=== PATIENT | male | born 1980 | race Caucasian/White ===

== ENCOUNTER 2024-05-04 10:48 | Outpatient (RCR) | payer BC, SELFPAY | END 2024-05-04 23:59 | disposition home or self-care (01) | LOC: RPT 10:48 | PROVIDERS: ATTENDING PHYSICIAN Physical Medicine & Rehabilitation Pain Medicine; FAMILY PHYSICIAN Nurse Practitioner | DX: M54.59 Other low back pain (principal); Z73.6 Limitation of activities due to disability; M51.36 Other intervertebral disc degeneration, lumbar region; M47.816 Spondylosis without myelopathy or radiculopathy, lumbar region; S39.012D Strain of muscle, fascia and tendon of lower back, subsequent encounter | CPT/HCPCS: 97110; 97112; 97162 ==

== ENCOUNTER 2024-05-18 12:52 | Outpatient (RCR) | payer BC, SELFPAY | END 2024-05-18 23:59 | disposition home or self-care (01) | LOC: RPT 12:52 | PROVIDERS: ATTENDING PHYSICIAN Physical Medicine & Rehabilitation Pain Medicine; FAMILY PHYSICIAN Nurse Practitioner | DX: M54.59 Other low back pain (principal) | CPT/HCPCS: 97110; 97112 ==

== ENCOUNTER 2024-06-08 09:16 | Outpatient (RCR) | payer BC, SELFPAY | END 2024-06-08 23:59 | disposition home or self-care (01) | LOC: RPT 09:16 | PROVIDERS: ATTENDING PHYSICIAN Physical Medicine & Rehabilitation Pain Medicine; FAMILY PHYSICIAN Nurse Practitioner | DX: M54.59 Other low back pain (principal); Z73.6 Limitation of activities due to disability; M51.36 Other intervertebral disc degeneration, lumbar region; M47.816 Spondylosis without myelopathy or radiculopathy, lumbar region | CPT/HCPCS: 97110 ==

== ENCOUNTER → 2024-06-22 08:51 | Outpatient (REF) | payer BC, SELFPAY ==
[2024-06-22 12:17] LABS: % Basophils 1.2 % (0-2); % Eosinophils 4.2 % (0-6); % Immature Granulocytes 0.2 % (0-0.5); % Lymphocytes 30.4 % (20.5-51.1); Absolute Basophils 0.1 10^3/uL (0-0.2); Absolute Eosinophils 0.3 10^3/uL (0-0.7); Absolute Lymphocytes 1.8 10^3/uL (1.2-3.4); Absolute Monocytes 0.5 10^3/uL (0.1-0.6); Absolute Neutrophils 3.3 10^3/uL (1.4-6.5); Hematocrit 44.6 % (39.0-52.0); Hemoglobin 15.6 g/dL (13.0-18.0); Mean Corpuscular Hgb 30.2 pg (27.0-31.0); Mean Corpuscular Volume 86.4 fL (80.0-94.0); Mean Platelet Volume 10.8 fL (7.4-10.4); Nucleated Red Blood Cells % 0 % (-); Platelet Count 273 10^3/uL (130-400); Red Blood Cell Count 5.16 10^6/uL (4.70-6.10); Red Cell Dist. Width 12.3 % (11.5-14.5)
[2024-06-22 12:56] LABS: ALT (SGPT) 33 U/L (0-50); AST (SGOT) 34 U/L (17-59); Albumin 4.6 g/dl (3.5-5.0); Alkaline Phosphatase 67 U/L (38-126); Blood Urea Nitrogen 16 mg/dl (9-20); Calcium 9.7 mg/dl (8.4-10.2); Carbon Dioxide 28 mmol/L (22-30); Chloride 103 mmol/L (98-107); Glucose 94 mg/dl (70-99); HDL Cholesterol 57 mg/dl; LDL Cholesterol, Calculated 129 mg/dl; Potassium 4.7 mmol/L (3.5-5.1); Sodium 144 mmol/L (135-145); Total Bilirubin 1.4 mg/dl (0.2-1.3); Total Cholesterol 209 mg/dl (50-199); Total Protein 7.3 g/dl (6.3-8.2); Triglyceride 116 mg/dl (10-149); Very Low Density Lipoprotein 23 mg/dl (0-30); eGFR > 60.00
[2024-06-22 13:24] LABS: PSA, Total - Screen 0.52 ng/ml (0.0-4.0); TSH Reflex To Free T4 1.14 uIU/ml (0.47-4.68)
== END ==
LOC: HWLAB 08:51
PROVIDERS: ATTENDING PHYSICIAN Nurse Practitioner; FAMILY PHYSICIAN Nurse Practitioner Adult Health
DX: Z12.5 Encounter for screening for malignant neoplasm of prostate (principal); Z00.01 Encounter for general adult medical examination with abnormal findings
CPT/HCPCS: 36415; 80053; 80061; 84443; 85025; G0103

== ENCOUNTER → 2024-11-10 06:37 | Outpatient (REF) | payer BC, SELFPAY | LOC: PAVMRI 06:37 | PROVIDERS: ATTENDING PHYSICIAN Physician Assistant; FAMILY PHYSICIAN Nurse Practitioner | DX: M47.816 Spondylosis without myelopathy or radiculopathy, lumbar region (principal) | CPT/HCPCS: 72148 ==

== ENCOUNTER → 2025-02-09 09:29 | Outpatient (REF) | payer BC, SELFPAY ==
[2025-02-09 12:03] LABS: % Basophils 1.1 % (0-2); % Eosinophils 4.1 % (0-6); % Immature Granulocytes 0.4 % (0-0.5); % Monocytes 9.3 % (1.7-9.3); % Neutrophils 57.1 % (42.2-75.2); Absolute Basophils 0.1 10^3/uL (0-0.2); Absolute Eosinophils 0.2 10^3/uL (0-0.7); Absolute Lymphocytes 1.6 10^3/uL (1.2-3.4); Absolute Monocytes 0.5 10^3/uL (0.1-0.6); Absolute Neutrophils 3.2 10^3/uL (1.4-6.5); Hematocrit 44.5 % (39.0-52.0); Hemoglobin 15.7 g/dL (13.0-18.0); Mean Corp Hgb Conc. 35.3 g/dL (33.0-37.0); Mean Corpuscular Hgb 31.3 pg (27.0-31.0); Mean Corpuscular Volume 88.6 fL (80.0-94.0); Mean Platelet Volume 11.2 fL (7.4-10.4); Nucleated Red Blood Cells % 0 % (-); Platelet Count 249 10^3/uL (130-400); Red Blood Cell Count 5.02 10^6/uL (4.70-6.10); Red Cell Dist. Width 11.9 % (11.5-14.5); White Blood Cell Count 5.6 10^3/uL (4.8-10.8)
[2025-02-09 12:08] LABS: ALT (SGPT) 30 U/L (0-50); AST (SGOT) 29 U/L (17-59); Albumin 4.3 g/dl (3.5-5.0); Alkaline Phosphatase 47 U/L (38-126); Blood Urea Nitrogen 18 mg/dl (9-20); Calcium 9.6 mg/dl (8.4-10.2); Carbon Dioxide 33 mmol/L (22-30); Chloride 106 mmol/L (98-107); Glucose 89 mg/dl (70-99); Iron 145 ug/dl (49-181); Potassium 4.8 mmol/L (3.5-5.1); Sodium 143 mmol/L (135-145); Total Bilirubin 1.8 mg/dl (0.2-1.3); eGFR > 60.00
[2025-02-09 12:17] LABS: Percent Saturation 48 % (20-50); Total Iron Binding Capacity 300 ug/dl (261-462)
[2025-02-09 12:26] LABS: Vitamin D, 25-OH*** 38.2 ng/mL (30-80)
[2025-02-09 12:31] LABS: Erythrocyte Sed Rate 11 mm/hour (0-20)
[2025-02-09 12:33] LABS: Monotest Negative (Negative)
[2025-02-09 12:39] LABS: TSH Reflex To Free T4 1.15 uIU/ml (0.47-4.68)
[2025-02-09 12:43] LABS: Ferritin 90.4 ng/ml (17.9-464.0)
[2025-02-09 13:14] LABS: Folate 13.2 ng/ml (2.76-20); Vitamin B12 396 pg/ml (239-931)
[2025-02-12 05:28] LABS: % Free Testosterone 1.8 % (1.6-2.9); Free Testosterone 99 pg/mL (47-244); Sex Hormone Binding Globulin 38 nmol/L (17-56); Total Testosterone 556 ng/dL (300-890)
[2025-02-12 07:09] LABS: EBV-EA (D) Ab IgG 5.6 U/mL (0.0-10.9); EBV-VCA IgM Antibodies <10.0 U/mL (0.0-43.9)
== END ==
LOC: HWRAD 09:29
DX: Z86.2 Personal history of diseases of the blood and blood-forming organs and certain disorders involving the immune mechanism (principal); R53.82 Chronic fatigue, unspecified
CPT/HCPCS: 36415; 71046; 80053; 82306; 82607; 82728; 82746; 83540; 83550; 84270; 84402; 84403; 84443; 85025; 85652; 86140; 86308; 86618; 86663; 86664; 86665

== ENCOUNTER → 2025-02-15 07:42 | Outpatient (REF) | payer BC, SELFPAY | LOC: HWRAD 07:42 | DX: R17 Unspecified jaundice (principal) | CPT/HCPCS: 76705 ==

== ENCOUNTER → 2025-03-21 09:10 | Outpatient (REF) | payer BC, SELFPAY ==
[2025-03-21 11:59] LABS: ALT (SGPT) 29 U/L (0-50); AST (SGOT) 29 U/L (17-59); Albumin 4.4 g/dl (3.5-5.0); Alkaline Phosphatase 61 U/L (38-126); Direct Bilirubin 0.4 mg/dl (0.0-0.4); Total Bilirubin 1.3 mg/dl (0.2-1.3); Total Protein 7.1 g/dl (6.3-8.2)
== END ==
LOC: HWLAB 09:10
DX: R17 Unspecified jaundice (principal)
CPT/HCPCS: 36415; 80076

== ENCOUNTER → 2025-04-28 09:36 | Outpatient (REF) | payer BC, SELFPAY ==
[2025-04-28 12:33] LABS: HDL Cholesterol 49 mg/dl; LDL Cholesterol, Calculated 193 mg/dl; Very Low Density Lipoprotein 19 mg/dl (0-30)
[2025-04-28 13:00] LABS: PSA, Total - Screen 0.51 ng/ml (0.0-4.0)
== END ==
LOC: HWLAB 09:36
DX: Z00.01 Encounter for general adult medical examination with abnormal findings (principal); Z12.5 Encounter for screening for malignant neoplasm of prostate
CPT/HCPCS: 36415; 80061; G0103